=== PATIENT | male | born 1960 | race Caucasian/White ===

== ENCOUNTER 2017-04-07 07:32 | Emergency (ER) | payer MEDICAID, OTHER ==
[~2017-04-07] VITALS: Ht 167.6 cm; Wt 73.0 kg
[~2017-04-07 07:32] MED LIST: BACTDS PO; CEPH-443 PO; NAPR-260 PO
[2017-04-07 07:35] VITALS: Ht 167.6 cm; Wt 73.0 kg
[2017-04-07] MEDS ORDERED: BACITRACIN 0.9 GM OINT TOP ONE (08:00)
[2017-04-07] MEDS ORDERED: CEPHALEXIN 500 MG CAP PO ONE (08:00)
[2017-04-07] MEDS ORDERED: LIDOCAINE 1% (MDV) 20 ML INJ SC ONE (08:00)
[2017-04-07] MEDS ORDERED: TRIMETHOPRIM/SULFAMETHOX (DS) TAB PO ONE (08:00)
[2017-04-07] MEDS ORDERED: CEPH-443 PO (08:24)
[2017-04-07] MEDS ORDERED: SULF1TAB31 PO (08:25)
[2017-04-07] MEDS ORDERED: MUPI22OI2 TOP (08:25)
[2017-04-07] MEDS ORDERED: IBUP-1542 PO (08:25)
--- NOTE | 2017-04-07 08:50 | ERD ---
ER Documentation Chief Complaint Date/Time DATE: 04/07/17 TIME: 08:46 Chief Complaint Complains of pain and swelling to left fourth toe HPI 56-year-old male otherwise healthy with no prior history of medical problems comes to emergency room with left-sided fourth toe swelling and erythema that started last week on . There is pain and swelling between the third and fourth toe that radiates to to the foot. It is described as achy, worse with weightbearing and moderate. Patient states that he had an itch between the toes, and since then it has become increasingly more erythematous and swollen. He has not had any drainage, denies trauma. Denies fevers or chills. ROS All systems reviewed and are negative except as per history of present illness. Medications Home Meds Active Scripts Mupirocin* (Bactroban*) 2% -22 Gram Oint...g., 1 APPLIC TOP BID for 7 Days, EA Prov:STEFANIE ISAAC PA-C 04/07/17 Ibuprofen* (Motrin*) 600 Mg Tab, 600 MG PO Q6, #30 TAB Prov:STEFANIE ISAAC PA-C 04/07/17 Sulfamethoxazole/Trimethoprim* (Bactrim Ds* Tablet) 1 Each Tablet, 1 TAB PO BID , #14 TAB Prov:STEFANIE ISAAC PA-C 04/07/17 Cephalexin* (Keflex*) 500 Mg Capsule, 500 MG PO QID for 7 Days, CAP Prov:STEFANIE ISAAC PA-C 04/07/17 Naproxen* (Naprosyn*) 500 Mg Tablet, 500 MG PO BID Y for PAIN AND/OR INFLAMMATION, #30 TAB Prov:REECE BRIZUELA PA-C 08/09/16 Sulfamethoxazole-Trimethoprim* (Bactrim* DS) 800-160 Mg Tab, 1 TAB PO BID for 7 Days, TAB Prov:QUINTON SANCHEZ PA-C 08/07/16 Cephalexin* (Keflex*) 500 Mg Capsule, 500 MG PO QID for 10 Days, CAP Prov:QUINTON SANCHEZ PA-C 08/07/16 Allergies Allergies: Coded Allergies: No Known Allergy (Unverified , 04/07/17) PMhx/Soc Medical and Surgical Hx: pt denies Medical Hx, pt denies Surgical Hx Hx Alcohol Use: No Hx Substance Use: No Hx Tobacco Use: No Smoking Status: Never smoker Physical Exam Vitals Vital Signs Date Time Temp Pulse Resp B/P Pulse Ox O2 Delivery O2 Flow Rate FiO2 04/07/17 07:35 98.0 77 20 148/82 99 Physical Exam General: Well-developed, well-nourished. The patient appears in no acute distress. HEENT: Head is normocephalic, atraumatic. No scleral icterus. Neck: Supple. Nontender. Lungs: Clear to auscultation. Normal air movement. Heart: Regular rate and rhythm. S1 and S2 are normal. No murmurs, gallops, or rubs. Abdomen: Nondistended. Extremities: Left fourth toe has an abscess, there is fluctuance that is medial between the fourth and third toes. There is erythema that continues, it is on the dorsum distal foot as well. Capillary refill less than 2 seconds. She has full range of motion flexion extension Neurologic: Alert and oriented 3. No focal deficits. Normal speech and gait. Skin: Normal turgor. No rash or lesions. Results 24 hrs Current Medications Medications (Trade) Dose Ordered Sig/Spencer Route PRN Reason Start Time Stop Time Status Last Admin Dose Admin Lidocaine (Xylocaine 1% (Mdv) 20 ml) 20 ml ONCE ONCE SC 04/07/17 08:00 04/07/17 08:01 DC Cephalexin (Keflex) 500 mg ONCE ONCE PO 04/07/17 08:00 04/07/17 08:01 DC 04/07/17 08:00 Trimethoprim/ Sulfamethoxazole (Bactrim (Ds)) 1 tab ONCE ONCE PO 04/07/17 08:00 04/07/17 08:01 DC 04/07/17 08:00 Bacitracin (Bacitracin Oint (Ud)) 1 applic ONCE ONCE TOP 04/07/17 08:00 04/07/17 08:01 DC 04/07/17 08:00 Procedures/MDM Abscess Incision and Drainage with irrigation by me: Patient was verbally consented. Location: Left fourth toe Anesthesia: Local 1% Lidocaine, digital block was done, with good local anesthetic effect achieved. Technique: Superficial incision was made to the medial aspect of the left fourth toe. Packing: None Complications: Neurovascularly intact post procedure 48 hour wound check. Scar minimization instructions given. Patient's skin symptoms have stabilized while they have been evaluated in the department and are appropriate for outpatient care and work up. Exam and w/u not consistent w/ sepsis, deep space infection, or foreign body. Patient's left foot was then irrigated with normal saline and soaked. Bacitracin and clean dressing were applied. And then his left foot was placed in a postop shoe. Medications: Patient was given Keflex and Bactrim DS. Medical decision making: This is a 56-year-old male comes in with a left fourth toe abscess from scratching, and has been 4 days and patient has cellulitis that is continuing onto the distal part of the foot as well. There was fluctuance is appreciated, an abscess was drained with incision and drainage. A copious amount of purulent material was removed and then the foot was irrigated as well. There is cellulitis, I believe with antibiotics, and with incision and drainage patient is appropriate for outpatient management. He will be given Keflex and Bactrim to continue at home with Bactroban to be applied topically. If he has any worsening symptoms he should return sooner otherwise recheck within 2 days. Departure Diagnosis: Primary Impression: Abscess Additional Impression: Encounter for incision and drainage procedure Condition: Good Patient Instructions: Abscess, Incision And Drainage Additional Instructions: WOUND CHECK:CONSULTE A JOSSELYN ESPINOSA EN 2 pal para marlee ARCOS HERIDA. STEFANIE ISAAC PA-C Apr 07, 2017 08:50
== END 2017-04-07 09:04 | disposition home or self-care (01) ==
LOC: FTE 07:32
DX: L02.612 Cutaneous abscess of left foot (principal)
CPT/HCPCS: 10060; Z7502; Z7610

== ENCOUNTER 2017-04-09 07:19 | Inpatient (IN) | payer MEDICAID ==
[~2017-04-09] VITALS: Ht 172.7 cm; Wt 72.4 kg
[~2017-04-09 07:19] MED LIST changes: +IBUP-1542 PO; +MUPI22OI2 TOP; +SULF1TAB31 PO
[2017-04-09] MEDS ORDERED: ONDANSETRON 4 MG INJ IV STA (07:41)
[2017-04-09] MEDS ORDERED: morphine 4 MG/ML VIAL IV STA (07:41)
[2017-04-09] MEDS ORDERED: SOD CHLORIDE 0.9% 1,000 ML IV ONE (08:00)
[2017-04-09 08:19] LABS: ADD SCAN DIFF NO
[2017-04-09 08:26] LABS: BASOPHILS % 0.4 % (0.0-2.0); EOSINOPHILS # 0.3 10^3/ul (0.0-0.5); EOSINOPHILS % 2.6 % (0.0-7.0); HEMATOCRIT 43.7 % (42.0-52.0); HEMOGLOBIN 15.1 g/dl (14.0-18.0); LYMPHOCYTES # 1.6 10^3/ul (0.8-2.9); LYMPHOCYTES % 16.1 % (15.0-51.0); MEAN CORPUSCULAR HEMOGLOBIN 30.5 pg (29.0-33.0); MEAN CORPUSCULAR HGB CONC 34.6 g/dl (32.0-37.0); MEAN CORPUSCULAR VOLUME 88.3 fl (82.0-101.0); MEAN PLATELET VOLUME 11.4 fl (7.4-10.4); MONOCYTE # 0.7 10^3/ul (0.3-0.9); MONOCYTES % 6.8 % (0.0-11.0); NEUTROPHIL # 7.3 10^3/ul (1.6-7.5); NEUTROPHILS % 73.4 % (39.0-77.0); PLATELET COUNT 266 10^3/UL (140-415); RED BLOOD COUNT 4.95 10^6/ul (4.70-6.10); RED CELL DISTRIBUTION WIDTH 12.9 % (11.5-14.5); WHITE BLOOD COUNT 9.9 10^3/ul (4.8-10.8)
[2017-04-09 08:28] LABS: ADD UMIC NO; UR ASCORBIC ACID NEGATIVE (NEGATIVE); UR BILIRUBIN (Dip) NEGATIVE (NEGATIVE); UR BLOOD (Dip) NEGATIVE (NEGATIVE); UR CLARITY CLEAR (CLEAR); UR COLOR YELLOW (YELLOW); UR GLUCOSE (Dip) NEGATIVE (NEGATIVE); UR KETONES (Dip) NEGATIVE (NEGATIVE); UR LEUKOCYTE ESTERASE (Dip) NEGATIVE Leu/ul (NEGATIVE); UR NITRITE (Dip) NEGATIVE (NEGATIVE); UR SPECIFIC GRAVITY (Dip) 1.017 (1.003-1.030); UR TOTAL PROTEIN (Dip) NEGATIVE (NEGATIVE); UR UROBILINOGEN (Dip) NEGATIVE (NEGATIVE)
--- NOTE | 2017-04-09 08:43 | RADRPT ---
PROCEDURE: XR Left foot. CLINICAL INDICATION: Left foot pain, abscess to fourth toe TECHNIQUE: Three views of the left foot were obtained. COMPARISON: No prior studies are available for comparison. FINDINGS: There is no acute fracture or dislocation. There is some remodelling of the fifth middle phalanx whi ch appears likely chronic but is incompletely evaluated by radiographs. Alignment is normal. Joint spaces are preserved. There is significant soft tissue swelling of the fourth digit. There is mild diffuse soft tissue sw elling of the foot. There are vascular calcifications. IMPRESSION: 1. Significant fourth digit soft tissue swelling and mild soft tissue swelling throughout the foot. Consider MRI for further evaluation as clinically warranted to assess for abscess. 2. No radiographic evidence of acute fracture or osteomyelitis, but MRI would offer additional detai l. RPTAT: UU .Travis Dickey MD, Date Time Electronically viewed and signed by .Travis Dickey MD, on 04/09/2017 08:43 .K/
[2017-04-09 08:56] LABS: ALBUMIN 4.3 g/dl (3.3-4.9); ALBUMIN/GLOBULIN RATIO 1.43; BILIRUBIN,INDIRECT 0.3 mg/dl (0-1.1); BILIRUBIN,TOTAL 0.3 mg/dl (0.2-1.3); CALCIUM 9.9 mg/dl (8.4-10.2); CREATININE 0.94 mg/dl (0.61-1.24); TOTAL PROTEIN 7.3 g/dl (6.1-8.1)
--- NOTE | 2017-04-09 08:58 | ERA ---
ER Documentation Chief Complaint Date/Time DATE: 04/09/17 Chief Complaint Here prior for toe abscess (04/07/2017), now redness/darkness now radiating up towards left foot HPI The patient is a 56-year-old male with no significant past medical history who presents the Emergency Department for evaluation of worsening cellulitis and abscess formation to the left foot. The patient reports that March, the patient developed swelling, erythema and abscess formation between the third and fourth digits of the left foot. The pain is noted to be worse with weightbearing activity and palpation, describes as moderate in severity. The patient was then evaluated in the Emergency Department 2 days ago, on April 07, 2017, at which time he was diagnosed with an abscess of the foot, and underwent incision and drainage. The patient was then discharged home with prescriptions for Bactrim DS, Keflex and Bactroban, which he has been taking as directed. However, despite this, he notes that he has developed recurrent abscess formation, and significantly worsening and spreading erythema, warmth, swelling and tenderness extending proximally to the dorsum of the foot. He admits to chills, but otherwise denies fevers or vomiting. Denies known history of diabetes or immunocompromised state. Denies trauma or injury to the foot. No other complaints at this time. ROS All systems reviewed and are negative except as per history of present illness. Medications Home Meds Active Scripts Mupirocin* (Bactroban*) 2% -22 Gram Oint...g., 1 APPLIC TOP BID for 7 Days, EA Prov:STEFANIE ISAAC PA-C 04/07/17 Ibuprofen* (Motrin*) 600 Mg Tab, 600 MG PO Q6, #30 TAB Prov:STEFANIE ISAAC PA-C 04/07/17 Sulfamethoxazole/Trimethoprim* (Bactrim Ds* Tablet) 1 Each Tablet, 1 TAB PO BID , #14 TAB Prov:STEFANIE ISAAC PA-C 04/07/17 Cephalexin* (Keflex*) 500 Mg Capsule, 500 MG PO QID for 7 Days, CAP Prov:STEFANIE ISAAC PA-C 04/07/17 Naproxen* (Naprosyn*) 500 Mg Tablet, 500 MG PO BID Y for PAIN AND/OR INFLAMMATION, #30 TAB Prov:REECE BRIZUELA PA-C 08/09/16 Sulfamethoxazole-Trimethoprim* (Bactrim* DS) 800-160 Mg Tab, 1 TAB PO BID for 7 Days, TAB Prov:QUINTON SANCHEZ PA-C 08/07/16 Cephalexin* (Keflex*) 500 Mg Capsule, 500 MG PO QID for 10 Days, CAP Prov:QUINTON SANCHEZ PA-C 08/07/16 Allergies Allergies: Coded Allergies: No Known Allergy (Unverified , 04/07/17) PMhx/Soc History of Surgery: Yes (LEFT FOOT SURGERY ) Hx Alcohol Use: No Hx Substance Use: No Hx Tobacco Use: No Physical Exam Vitals Vital Signs Date Time Temp Pulse Resp B/P Pulse Ox O2 Delivery O2 Flow Rate FiO2 04/09/17 07:22 98.3 80 20 135/75 99 Physical Exam GENERAL: Well-developed, well-nourished, male, in no acute distress/ HEENT: Head is normocephalic, atraumatic. No scleral pallor or icterus. Conjunctiva pink. Moist mucous membranes. NECK: Supple. Full range of motion. RESPIRATORY: Lungs are clear to auscultation bilaterally. Equal breath sounds. Normal expiratory effort. CARDIOVASCULAR: Regular rate and rhythm. S1 and S2 normal. GASTROINTESTINAL: Abdomen is soft, non-tender, and non-distended. FLANK: No CVA tenderness. BACK: No midline tenderness. EXTREMITIES: No clubbing or cyanosis. Moving all extremities. Muscle tone is normal. Compartments are soft. Distal pulses are palpable, 2+ bilaterally. Capillary refill is less than 2 seconds. See Integument Exam. NEUROLOGIC: The patient is alert, awake, and oriented x 3. No focal neurologic deficits. Motor and sensation grossly intact. INTEGUMENT: Abscess of the left fourth toe, with palpable fluctuance, extending into the interdigital web space between the 3rd and 4th digits. There is erythema and ecchymosis that extends proximally to the dorsum of the foot towards the proximal left ankle, with associated swelling, warmth and tenderness to palpation. No lymphatic streaking. Normal plantar flexion and dorsiflexion of the left ankle. PSYCHIATRIC: Cooperative. Appropriate. Result Diagram: 04/09/17 0800 04/09/17 0800 Results 24 hrs Laboratory Tests Test 04/09/17 08:00 04/09/17 08:12 White Blood Count 9.910^3/ul Red Blood Count 4.9510^6/ul Hemoglobin 15.1g/dl Hematocrit 43.7% Mean Corpuscular Volume 88.3fl Mean Corpuscular Hemoglobin 30.5pg Mean Corpuscular Hemoglobin Concent 34.6g/dl Red Cell Distribution Width 12.9% Platelet Count 93205^3/UL Mean Platelet Volume 11.4fl Neutrophils % 73.4% Lymphocytes % 16.1% Monocytes % 6.8% Eosinophils % 2.6% Basophils % 0.4% Nucleated Red Blood Cells % 0.0/100WBC Neutrophils # 7.310^3/ul Lymphocytes # 1.610^3/ul Monocytes # 0.710^3/ul Eosinophils # 0.310^3/ul Basophils # 0.010^3/ul Nucleated Red Blood Cells # 0.010^3/ul Prothrombin Time 12.9Sec Prothrombin Time Ratio 1.0 INR International Normalized Ratio 0.97 Activated Partial Thromboplast Time 27.5Sec Sodium Level 142mmol/L Potassium Level 5.0mmol/L Chloride Level 104mmol/L Carbon Dioxide Level 26mmol/L Anion Gap 17 Blood Urea Nitrogen 16mg/dl Creatinine 0.94mg/dl Glucose Level 99mg/dl Lactic Acid Level 1.4mmol/L Calcium Level 9.9mg/dl Total Bilirubin 0.3mg/dl Direct Bilirubin 0.00mg/dl Indirect Bilirubin 0.3mg/dl Aspartate Amino Transf (AST/SGOT) 16IU/L Alanine Aminotransferase (ALT/SGPT) 30IU/L Alkaline Phosphatase 99IU/L Total Protein 7.3g/dl Albumin 4.3g/dl Globulin 3.00g/dl Albumin/Globulin Ratio 1.43 Urine Color YELLOW Urine Clarity CLEAR Urine pH 6.0 Urine Specific [place] 1.017 Urine Ketones NEGATIVEmg/dL Urine Nitrite NEGATIVEmg/dL Urine Bilirubin NEGATIVEmg/dL Urine Urobilinogen NEGATIVEmg/dL Urine Leukocyte Esterase NEGATIVELeu/ul Urine Hemoglobin NEGATIVEmg/dL Urine Glucose NEGATIVEmg/dL Urine Total Protein NEGATIVEmg/dl Current Medications Medications (Trade) Dose Ordered Sig/Spencer Route PRN Reason Start Time Stop Time Status Last Admin Dose Admin Sodium Chloride (NS) 1,000 ml @ 1,000 mls/hr Q1H ONCE IV 04/09/17 08:00 04/09/17 08:59 DC 04/09/17 08:26 Morphine Sulfate (morphine) 4 mg ONCE STAT IV 04/09/17 07:41 04/09/17 07:42 DC 04/09/17 08:25 Ondansetron HCl 4 mg 4 mg ONCE STAT IV 04/09/17 07:41 04/09/17 07:42 DC 04/09/17 08:26 Vancomycin HCl 250 ml @ 125 mls/hr ONCE IVPB 04/09/17 09:00 04/09/17 10:59 Ceftriaxone Sodium 50 ml @ 100 mls/hr ONCE ONCE IVPB 04/09/17 09:00 04/09/17 09:29 DC 04/09/17 09:36 Sodium Chloride (NS) 1,000 ml @ 80 mls/hr [id number] IV 04/09/17 09:19 04/09/17 21:48 Ondansetron HCl (Zofran Inj) 4 mg BRIDGE ORDER PRN IV NAUSEA AND/OR VOMITING 04/09/17 09:30 04/10/17 09:29 Acetaminophen (Tylenol Tab) 650 mg ER BRIDGE PRN PO MILD PAIN/FEVER 04/09/17 09:30 04/10/17 09:29 Procedures/MDM DIAGNOSTIC TESTS AND INTERPRETATION: PROCEDURE: XR Left foot. CLINICAL INDICATION: Left foot pain, abscess to fourth toe TECHNIQUE: Three views of the left foot were obtained. COMPARISON: No prior studies are available for comparison. FINDINGS: There is no acute fracture or dislocation. There is some remodelling of the fifth middle phalanx which appears likely chronic but is incompletely evaluated by radiographs. Alignment is normal. Joint spaces are preserved. There is significant soft tissue swelling of the fourth digit. There is mild diffuse soft tissue swelling of the foot. There are vascular calcifications. IMPRESSION: 1. Significant fourth digit soft tissue swelling and mild soft tissue swelling throughout the foot. Consider MRI for further evaluation as clinically warranted to assess for abscess. 2. No radiographic evidence of acute fracture or osteomyelitis, but MRI would offer additional detail. .Travis Dickey MD, MD Date Time Electronically viewed and signed by .Travis Dickey MD, MD on 04/09/2017 08: 43 EMERGENCY DEPARTMENT COURSE: The patient was stable throughout the ED course. IV access established by nursing staff. Laboratory testing and x-ray imaging of the left foot ordered. Blood cultures/urine culture/wound culture collected. Fluids, Vancomycin and Rocephin administered. On reevaluation, the patient reports no new complaints. The patient's case was discussed with Dr. Fuller, ED attending/supervising physician, who evaluated the patient bedside, and admitted patient to the care of Dr. Cheng, modeist, in Med/Surg. Dr. Fuller agrees with management and plan. MEDICAL DECISION MAKING: This is a 56-year-old male presenting to the Emergency Department with recurrent abscess formation and spreading cellulitis of the left lower extremity. The patient was seen in the emergency department 2 days prior, and underwent incision and drainage of the abscess. He was then discharged home with prescriptions for Bactrim DS, Keflex and Bactroban, which she has been taking as directed. Despite this, he has developed worsening, spreading cellulitis to the left lower extremity. Laboratory analysis with no leukocytosis. Lactic acid normal. Patient does not meet SIRS or sepsis criteria at this time. Given failure to outpatient antibiotic therapy, and worsening signs of infection, the patient will be admitted to Med/Surg under the care of Dr. Cheng, hospitalist, for further evaluation and management. He was given a dose of Vancomycin and Rocephin in the ED. Departure Diagnosis: Primary Impression: Abscess of fourth toe, left Additional Impression: Cellulitis of left lower extremity Condition: Stable JULIANA MURRY PA-C Apr 09, 2017 08:58
[2017-04-09] MEDS ORDERED: VANCOMYCIN 1 GM (PMX) 250 ML IVPB SCH (09:00)
[2017-04-09] MEDS ORDERED: CEFTRIAXONE 1 GM/50 ML (PMX) 50 ML IVPB ONE (09:00)
[2017-04-09] MEDS ORDERED: SOD CHLORIDE 0.9% 1,000 ML IV SCH (09:19)
--- NOTE | 2017-04-09 09:20 | QN ---
Documentation Comment I have evaluated this patient. This patient is failed outpatient treatment for right lower extremity cellulitis. The patient was started on vancomycin and Rocephin will be placed in for admission to the [facility] floor under the care of JESSE Nicolas DO Apr 09, 2017 09:20
[2017-04-09 09:25] LABS: INR 0.97; PROTIME 12.9 Sec (12.2-14.2)
[2017-04-09 09:26] LABS: PARTIAL THROMBOPLASTIN TIME 27.5 Sec (25.0-35.0)
[2017-04-09] MEDS ORDERED: ONDANSETRON 4 MG INJ IV PRN (09:30)
[2017-04-09] MEDS ORDERED: ACETAMINOPHEN 325 MG TAB PO PRN ×2 (09:30→11:00)
[2017-04-09] MEDS ORDERED: ONDANSETRON 4 MG TAB PO PRN (11:00)
[2017-04-09] MEDS ORDERED: VANCOMYCIN IV PER PHARMACY XX SCH (11:00)
[2017-04-09] MEDS ORDERED: NACL 0.9% 3 ML SYG IV SCH (11:00)
[2017-04-09] MEDS ORDERED: BISACODYL (EC) 5 MG TAB PO PRN (11:00)
[2017-04-09] MEDS ORDERED: DOCUSATE SODIUM 100 MG CAP PO PRN (11:00)
[2017-04-09] MEDS ORDERED: BISACODYL 10 MG SUPP PR PRN (11:00)
[2017-04-09] MEDS ORDERED: MAGNESIUM HYDROXIDE 30ML CUP PO PRN (11:00)
[2017-04-09 11:23] VITALS: PULSE 68
[2017-04-09] MEDS: IBUPROFEN 600 MG TAB PO SCH ×3 (13:06→23:28)
--- NOTE | 2017-04-09 13:36 | RADRPT ---
PROCEDURE: MRI OF THE LEFT FOOT CLINICAL INDICATION: Left foot pain and swelling, evaluate for toe abscess TECHNIQUE: Multiple MRI images of the left foot were obtained utilizing multiple sequences in multi ple planes without IV contrast. Images were interpreted on a high-resolution PACS system. COMPARISON: Radiographs of the left foot April 09 2017 FINDINGS: A marker has been placed along the dorsal aspect of the fourth digit near the proximal interphalange al joint. Near this marker there is a dorsal skin defect (coronal 19) with extensive surrounding so ft tissue swelling and phlegmonous change. No discrete fluid collection is seen noting lack of IV c ontrast. Additionally, there is a 5 mm by 7 mm and of possible scarring or foreign body versus leticia tional phlegmonous change (sagittal 6) near the head of the fourth proximal phalanx. There is also similar signal intensity along the dorsal aspect of the interphalangeal joint. This was not seen on the patient's plain films. There is mild bone marrow signal within the fourth proximal and middle phalanx, possibly reactive an d not definitive for osteomyelitis at this time though difficult to exclude early osteomyelitis. Th ere is no evidence of tendon tear. There is nonspecific intrinsic foot muscle edema. There are mil d degenerative changes at the first metatarsophalangeal joint. IMPRESSION: 1. Dorsal skin defect of the fourth digit near the proximal interphalangeal joint with extensive so ft tissue swelling and phlegmonous change throughout digit. Difficult to exclude superimposed small abscess formation given lack of IV contrast though no large drainable fluid collection is identifie d. Note is made of 7 x 5 mm slightly more focal rounded signal abnormality within the plantar - lateral soft tissues of the fourth digit, query foreign body versus additional phlegmonous change/scarring. No radiopaque foreign body can be identified on plain films. 2. Mild nonspecific bone marrow edema involving the fourth proximal and middle phalanges may be ruthie ctive in nature, without definitive osteomyelitis or sidney erosive change at this time. Early osteo myelitis would be difficult to exclude, consider short-term follow-up MRI in 5-7 days for further ev aluation. RPTAT: UU .Travis Dickey MD, MD Date Time Electronically viewed and signed by .Travis Dickey MD, on 04/09/2017 13:36 .K/
--- NOTE | 2017-04-09 16:29 | HP ---
Date/Time of Note Date/Time of Note DATE: 04/09/17 TIME: 16:28 Assessment/Plan VTE Prophylaxis VTE Prophylaxis Intervention: SCD's Assessment/Plan Assessment/Plan 56 yo M with ?h/o DM2 presents with L 4th toe erythema and swelling and L forefoot erythema clinically concerning for cellulitis which worsening despite I &D last week and oral abx PLAN -empiric IV abx for SSTI's with vanc/ancef -check a1c -keep foot elevated -wound care -consider podiatry eval in AM -f/u MRI in several days per radiology rec DVT prophx HPI/ROS Admit Date/Time Admit Date/Time Apr 09, 2017 at 09:19 Hx of Present Illness language line used to facilitate communication 56 yo M with pmhx ?DM, previous cellulitis presents with 6 days of L foot pain and erythema. Pt reports he noticed swelling of his L 4th toe last week. Came to the [facility] ED and had a small fluid collection drained. Pt was rx'ed a course of bactrim/keflex for cellulitis. Since that time the swelling and redness of his toe/foot has worsened. Toe swelling is worse and erythema has extended proximally from toe to midfoot. No fevers, chills, nausea, vomitting 10pROS neg except as per HPI PMH/Family/Social Past Medical History as per HPI no home meds lives in the community with his Social History Smoking Status: Never smoker Exam/Review of Systems Vital Signs Vitals Vital Signs Date Time Temp Pulse Resp B/P Pulse Ox O2 Delivery O2 Flow Rate FiO2 04/09/17 11:23 68 18 127/65 98 Room Air 04/09/17 07:22 98.3 Exam Exam nad, sitting up in bed EOMI MMM no mrg lungs clear abd soft no le edema bl palpable DP pulses L foot with sig swelling of 4th toe, erythema extending proximally from digit to mid forefoot over anterior surface. borders marked Labs Result Diagram: 04/09/17 0800 04/09/17 0800 Medications Medications Current Medications Ibuprofen (Motrin) 600 mg Q6 PO Last administered on 04/09/17t 16:20; Admin Dose 600 MG; Start 04/09/17 at 12:00 Ondansetron HCl (Zofran Tab) 4 mg Q6H PRN PO NAUSEA AND/OR VOMITING; Start at 11:00 Acetaminophen (Tylenol Tab) 650 mg Q6H PRN PO PAIN LEVEL 1-3 OR FEVER; Start at 11:00 Docusate Sodium (Colace) 100 mg Q12H PRN PO CONSTIPATION; Start 04/09/17 at 11: 00 Magnesium Hydroxide (Milk Of Mag) 30 ml DAILY PRN PO CONSTIPATION; Start at 11:00 Bisacodyl (Dulcolax) 5 mg DAILY PRN PO CONSTIPATION; Start 04/09/17 at 11:00 Bisacodyl (Dulcolax Supp) 10 mg DAILY PRN [place] CONSTIPATION; Start 04/09/17 at 11 :00 Enoxaparin Sodium 40 mg 40 mg DAILY SC ; Start 04/10/17 at 09:00 Vancomycin HCl 250 ml @ 125 mls/hr Q12H IVPB ; Start 04/09/17 at 18:00 Cefazolin Sodium (Ancef 1 Gm/50 ml (Pmx)) 50 ml @ 100 mls/hr Q8 IVPB ; Start at 22:00 Procedures Procedures XR with soft tissue swelling cannot r/o abscess MRI without clear abscess NATASHA STONE MD Apr 09, 2017 16:29
[2017-04-09] MEDS: VANCOMYCIN 1 GM in NS 250 ML IVPB SCH (17:30)
[2017-04-09 17:57] VITALS: Ht 172.7 cm; Wt 72.4 kg
[2017-04-09] MEDS ORDERED: HYDROCODONE/APAP (5/325) TAB PO PRN (18:30)
[2017-04-09 20:39] VITALS: BP 122/57; RESP 18
[2017-04-09] MEDS: CEFAZOLIN 1 GM/50 ML (PMX) 50 ML IVPB SCH (21:08)
[2017-04-10] MEDS: IBUPROFEN 600 MG TAB PO SCH ×3 (05:09→17:57)
[2017-04-10] MEDS: CEFAZOLIN 1 GM/50 ML (PMX) 50 ML IVPB SCH ×3 (05:09→21:32)
[2017-04-10 05:53] LABS: CALCIUM 9.2 mg/dl (8.4-10.2); CREATININE 0.93 mg/dl (0.61-1.24); POTASSIUM 4.8 mmol/L (3.5-5.1)
[2017-04-10] MEDS: VANCOMYCIN 1 GM in NS 250 ML IVPB SCH ×2 (06:20→17:57)
[2017-04-10 08:00] VITALS: BP 101/64; RESP 18
[2017-04-10] MEDS: ENOXAPARIN 40 MG/0.4 ML SYG SC SCH (10:39)
--- NOTE | 2017-04-10 11:17 | PN ---
Date/Time of Note Date/Time of Note DATE: 04/10/17 TIME: 11:16 Assessment/Plan VTE Prophylaxis VTE Prophylaxis Intervention: SCD's Lines/Catheters IV Catheter Type (from Nrsg): Peripheral IV Urinary Cath still in place: No Assessment/Plan Assessment/Plan 56 yo M with preDM2 presents with L 4th toe erythema and swelling and L forefoot erythema clinically concerning for cellulitis which worsening despite I &D last week and oral abx PLAN -cont IV abx for SSTI's with vanc/ancef -keep foot elevated -wound care - podiatry eval -f/u MRI in several days per radiology rec DVT prophx Subjective 24 Hr Interval Summary Free Text/Dictation nad laying in bed no mrg lungs clear abd soft L foot erythema regressed slightly from borders drawn yesterday Exam/Review of Systems Vital Signs Vitals Vital Signs Date Time Temp Pulse Resp B/P Pulse Ox O2 Delivery O2 Flow Rate FiO2 04/10/17 08:00 98.2 76 18 101/64 98 04/09/17 11:23 Room Air Intake and Output 04/09/17 04/09/17 04/10/17 15:00 23:00 07:00 Intake Total 620 ml 490 ml Output Total 1300 ml Balance 620 ml -810 ml Results Result Diagram: 04/09/17 0800 04/10/17 0457 Results 24 hrs Laboratory Tests Test 04/10/17 04:57 Sodium Level 141 Potassium Level 4.8 Chloride Level 106 Carbon Dioxide Level 26 Anion Gap 14 Blood Urea Nitrogen 15 Creatinine 0.93 Glucose Level 98 Calcium Level 9.2 Medications Medications Current Medications Ibuprofen (Motrin) 600 mg Q6 PO Last administered on 04/10/17t 05:09; Admin Dose 600 MG; Start 04/09/17 at 12:00 Ondansetron HCl (Zofran Tab) 4 mg Q6H PRN PO NAUSEA AND/OR VOMITING; Start at 11:00 Acetaminophen (Tylenol Tab) 650 mg Q6H PRN PO PAIN LEVEL 1-3 OR FEVER; Start at 11:00 Docusate Sodium (Colace) 100 mg Q12H PRN PO CONSTIPATION; Start 04/09/17 at 11: 00 Magnesium Hydroxide (Milk Of Mag) 30 ml DAILY PRN PO CONSTIPATION; Start at 11:00 Bisacodyl (Dulcolax) 5 mg DAILY PRN PO CONSTIPATION; Start 04/09/17 at 11:00 Bisacodyl (Dulcolax Supp) 10 mg DAILY PRN [place] CONSTIPATION; Start 04/09/17 at 11 :00 Enoxaparin Sodium 40 mg 40 mg DAILY SC Last administered on 04/10/17 10:39; Admin Dose 40 MG; Start 04/10/17 at 09:00 Vancomycin HCl 250 ml @ 125 mls/hr Q12H IVPB Last administered on 04/10/17 06 :20; Admin Dose 125 MLS/HR; Start 04/09/17 at 18:00 Cefazolin Sodium (Ancef 1 Gm/50 ml (Pmx)) 50 ml @ 100 mls/hr Q8 IVPB Last administered on 04/10/17 05:09; Admin Dose 100 MLS/HR; Start 04/09/17 at 22:00 Acetaminophen/ Hydrocodone Bitart ([place] (5/325)) 1 tab Q6H PRN PO pain greater than 4; Start 04/09/17 at 18:30 Procedures Procedures a1c high 5s NATASHA STONE MD Apr 10, 2017 11:17
[2017-04-10] MEDS ORDERED: SILVER SULFADIAZINE 1% 25 GM CR TOP SCH (13:00)
[2017-04-10 21:24] VITALS: BP 109/64; RESP 16
[2017-04-11] MEDS: IBUPROFEN 600 MG TAB PO SCH ×4 (00:20→18:01)
[2017-04-11] MEDS: CEFAZOLIN 1 GM/50 ML (PMX) 50 ML IVPB SCH ×3 (05:30→21:59)
[2017-04-11] MEDS: VANCOMYCIN 1 GM in NS 250 ML IVPB SCH ×2 (06:15→06:56)
[2017-04-11 08:44] VITALS: BP 104/61; RESP 17
[2017-04-11] MEDS: ENOXAPARIN 40 MG/0.4 ML SYG SC SCH (08:59)
--- NOTE | 2017-04-11 14:05 | PN ---
Date/Time of Note Date/Time of Note DATE: 04/11/17 TIME: 14:03 Assessment/Plan VTE Prophylaxis VTE Prophylaxis Intervention: SCD's Lines/Catheters IV Catheter Type (from Nrsg): Saline Lock Urinary Cath still in place: No Assessment/Plan Assessment/Plan 56 yo M with preDM2 presents with L 4th toe erythema and swelling and L forefoot erythema clinically concerning for cellulitis which worsening despite I &D last week and oral abx PLAN -cont IV abx for SSTI's with vanc/ancef -keep foot elevated -wound care - podiatry eval happened today, await recs -f/u MRI in several days per radiology rec DVT prophx dispo pending podiatry recs Subjective 24 Hr Interval Summary Free Text/Dictation Feels well. Seen by podiatry this AM. Note pending Exam/Review of Systems Vital Signs Vitals Vital Signs Date Time Temp Pulse Resp B/P Pulse Ox O2 Delivery O2 Flow Rate FiO2 04/11/17 08:44 97.9 61 17 104/61 99 04/09/17 11:23 Room Air Intake and Output 04/10/17 04/10/17 04/11/17 15:00 23:00 07:00 Intake Total 250 ml 1410 ml 530 ml Output Total 1210 ml Balance 250 ml 1410 ml -680 ml Exam nad no mrg lungs clear abd soft forefoot erythema resolved. Still with toe swelling wound culture with SAur and GNRs Results Result Diagram: 04/09/17 0800 04/10/17 0457 Results 24 hrs Laboratory Tests Test 04/11/17 05:03 Vancomycin Level Trough 9.1 L Medications Medications Current Medications Ibuprofen (Motrin) 600 mg Q6 PO Last administered on 04/11/17t 12:02; Admin Dose 600 MG; Start 04/09/17 at 12:00 Ondansetron HCl (Zofran Tab) 4 mg Q6H PRN PO NAUSEA AND/OR VOMITING; Start at 11:00 Acetaminophen (Tylenol Tab) 650 mg Q6H PRN PO PAIN LEVEL 1-3 OR FEVER; Start at 11:00 Docusate Sodium (Colace) 100 mg Q12H PRN PO CONSTIPATION; Start 04/09/17 at 11: 00 Magnesium Hydroxide (Milk Of Mag) 30 ml DAILY PRN PO CONSTIPATION; Start at 11:00 Bisacodyl (Dulcolax) 5 mg DAILY PRN PO CONSTIPATION; Start 04/09/17 at 11:00 Bisacodyl (Dulcolax Supp) 10 mg DAILY PRN CA CONSTIPATION; Start 04/09/17 at 11 :00 Enoxaparin Sodium 40 mg 40 mg DAILY SC Last administered on 04/11/17 08:59; Admin Dose 40 MG; Start 04/10/17 at 09:00 Cefazolin Sodium (Ancef 1 Gm/50 ml (Pmx)) 50 ml @ 100 mls/hr Q8 IVPB Last administered on 04/11/17 05:30; Admin Dose 100 MLS/HR; Start 04/09/17 at 22:00 Acetaminophen/ Hydrocodone Bitart 1 tab 1 tab Q6H PRN PO pain greater than 4; Start 04/09/17 at 18:30 Vancomycin HCl/ Sodium Chloride (Vancocin/NS) 250 ml @ 83.333 mls/ hr Q12H IVPB ; Start 04/11/17 at 18:00 NATASHA STONE MD Apr 11, 2017 14:05
[2017-04-11] MEDS: VANCOMYCIN 1.25 GM in SOD CHLORIDE 0.9% 250 ML IVPB SCH (18:01)
[2017-04-11 21:55] VITALS: BP 114/65; RESP 16
[2017-04-12] MEDS: IBUPROFEN 600 MG TAB PO SCH ×3 (00:09→11:09)
[2017-04-12] MEDS: CEFAZOLIN 1 GM/50 ML (PMX) 50 ML IVPB SCH (06:05)
[2017-04-12] MEDS: VANCOMYCIN 1.25 GM in SOD CHLORIDE 0.9% 250 ML IVPB SCH (06:39)
[2017-04-12 08:00] VITALS: BP 136/69; RESP 20
[2017-04-12 08:42] LABS: CREATININE 0.84 mg/dl (0.61-1.24)
[2017-04-12] MEDS: ENOXAPARIN 40 MG/0.4 ML SYG SC SCH (09:35)
[2017-04-12] MEDS ORDERED: TRIMETHOPRIM/SULFAMETHOX (DS) TAB PO SCH (10:00)
[2017-04-12] MEDS ORDERED: LEVOFLOXACIN 750 MG TABLET PO ONE (10:00)
[2017-04-12] MEDS ORDERED: LEVO750T25 PO (13:39)
[2017-04-12] MEDS ORDERED: Trimethoprim/Sulfamethox (Ds) PO (13:39)
--- NOTE | 2017-04-12 13:41 | PDOCDIS ---
Discharge Instructions CONDITION Patient Condition: Good HOME CARE INSTRUCTIONS: Special Diet: CARB CONTROL FOLLOW UP/APPOINTMENTS Follow-up Plan Please call the foot doctor Dr Johnson for follow up within 1 week Por favor llame al doctor de iraj Johnson para el seguimiento en 1 semana Office Address [address] [place] [id number] Office NATASHA STONE MD Apr 12, 2017 13:41
--- NOTE | 2017-04-12 13:47 | DS ---
Date/Time of Note Date/Time of Note DATE: 04/12/17 TIME: 13:42 Discharge Summary Admission/Discharge Info Admit Date/Time Apr 09, 2017 at 09:19 Discharge Date/Time Patient Condition: Good Consults podiatry Procedures 6.28 L foot MRI IMPRESSION: 1. Dorsal skin defect of the fourth digit near the proximal interphalangeal joint with extensive soft tissue swelling and phlegmonous change throughout digit. Difficult to exclude superimposed small abscess formation given lack of IV contrast though no large drainable fluid collection is identified. Note is made of 7 x 5 mm slightly more focal rounded signal abnormality within the plantar - lateral soft tissues of the fourth digit, query foreign body versus additional phlegmonous change/scarring. No radiopaque foreign body can be identified on plain films. 2. Mild nonspecific bone marrow edema involving the fourth proximal and middle phalanges may be reactive in nature, without definitive osteomyelitis or sidney erosive change at this time. Early osteomyelitis would be difficult to exclude , consider short-term follow-up MRI in 5-7 days for further evaluation. Hx of Present Illness language line used to facilitate communication 56 yo M with pmhx ?DM, previous cellulitis presents with 6 days of L foot pain and erythema. Pt reports he noticed swelling of his L 4th toe last week. Came to the [facility] ED and had a small fluid collection drained. Pt was rx'ed a course of bactrim/keflex for cellulitis. Since that time the swelling and redness of his toe/foot has worsened. Toe swelling is worse and erythema has extended proximally from toe to midfoot. No fevers, chills, nausea, vomitting 10pROS neg except as per HPI Hospital Course Pt admitted for foot cellulitis. Abx broadened to vanc/ceftriaxone. Forefoot erythema resolved within 48 hours. Pt seen by wound care and podiatry. Per podiatry no need for further procedural intervention. No compelling evidence of OM on MRI. Pt to f/u with podiatry this week for f/u. referral placed for wound care. Pt discharged with 7 days of higher dose bactrim and keflex swapped out for levoflox. Home Meds Active Scripts [Trimethoprim/Sulfamethox (Ds)] 1 TAB TAB No Conflict Check, 2 TAB PO BID for 7 Days, #28 Prov:NATASHA STONE MD 7/1/17 Levofloxacin* (Levaquin*) 750 Mg Tablet, 750 MG PO DAILY@06 for 7 Days, #7 TAB Prov:NATASHA STONE MD 04/12/17 Mupirocin* (Bactroban*) 2% -22 Gram Oint...g., 1 APPLIC TOP BID for 7 Days, EA Prov:STEFANIE ISAAC PA-C 04/07/17 Ibuprofen* (Motrin*) 600 Mg Tab, 600 MG PO Q6, #30 TAB Prov:STEFANIE ISAAC PA-C 04/07/17 Sulfamethoxazole/Trimethoprim* (Bactrim Ds* Tablet) 1 Each Tablet, 1 TAB PO BID , #14 TAB Prov:STEFANIE ISAAC PA-C 04/07/17 Cephalexin* (Keflex*) 500 Mg Capsule, 500 MG PO QID for 7 Days, CAP Prov:STEFANIE ISAAC PA-C 04/07/17 Naproxen* (Naprosyn*) 500 Mg Tablet, 500 MG PO BID Y for PAIN AND/OR INFLAMMATION, #30 TAB Prov:REECE BRIZUELA PA-C 08/09/16 Sulfamethoxazole-Trimethoprim* (Bactrim* DS) 800-160 Mg Tab, 1 TAB PO BID for 7 Days, TAB Prov:QUINTON SANCHEZ PA-C 08/07/16 Cephalexin* (Keflex*) 500 Mg Capsule, 500 MG PO QID for 10 Days, CAP Prov:QUINTON SANCHEZ PA-C 08/07/16 Primary Care Provider Arelis Al Time spent on discharge: > 30 minutes Pending Labs Laboratory Tests Test 04/12/17 05:21 Blood Urea Nitrogen 17mg/dl (7-20) Creatinine 0.84mg/dl (0.61-1.24) NATASHA STONE MD Apr 12, 2017 13:46
[2017-04-13] MEDS ORDERED: LEVOFLOXACIN 750 MG TABLET PO SCH (06:00)
== END 2017-04-12 16:31 | disposition home health service (06) | DRG 603 ==
LOC: FTE 07:19 → PP2 09:19
PROVIDERS: ADMIT Family Medicine; ATTEND Family Medicine
DX: L03.032 Cellulitis of left toe (principal)
CPT/HCPCS: 36415; 73718; 80048; 80053; 80202; 81003; 82565; 83036; 83605; 84520; 85025; 85610; 85730; 87040; 87070; 87081; 87086; 96361; 96374; 96375; J0690; J0696; J1650; J2270; J2405; J3370; J7030; J7050